=== PATIENT | male | born 1960 ===

== ENCOUNTER 2024-07-24 08:20 | Day surgery (SDC) | payer MEDICARE ==
[~2024-07-24] VITALS: Ht 182.9 cm; Wt 106.6 kg
[~2024-07-24 08:20] MED LIST: BAYER ASPIRIN E81 MG PO
[2024-07-24] MEDS ORDERED: LACTATED RINGER'S 1,000 ML IV ONE (08:24)
[2024-07-24] MEDS ORDERED: FAMOTIDINE 10MG/ML 2ML SDV IV ONE (08:24)
[2024-07-24] MEDS ORDERED: GLYCOPYRROLATE 0.2 MG/ML IV ONE (10:07)
[2024-07-24] MEDS ORDERED: PROPOFOL 200 MG/20 ML VIAL IV ONE (10:07)
[2024-07-24] MEDS ORDERED: LIDOCAINE HCL 2% 2ML SDV IV ONE (10:07)
[2024-07-24 10:14] VITALS: BP 127/89
== END 2024-07-24 10:24 | disposition home or self-care (01) ==
LOC: ORM 08:20
PROVIDERS: ATTEND Surgery
PROC: 0DJD8ZZ Inspection of Lower Intestinal Tract, Via Natural or Artificial Opening Endoscopic (ICD-10-PCS; principal; 2024-07-24)
DX: Z12.11 Encounter for screening for malignant neoplasm of colon (principal); K57.30 Diverticulosis of large intestine without perforation or abscess without bleeding; K64.8 Other hemorrhoids; Z80.0 Family history of malignant neoplasm of digestive organs
CPT/HCPCS: J1596